=== PATIENT | female | born 1980 | race Caucasian/White ===

== ENCOUNTER 2016-03-10 18:19 | Emergency (ER) | payer BC | END 2016-03-10 21:23 | disposition home or self-care (01) | DX: B34.9 Viral infection, unspecified (principal) ==

== ENCOUNTER 2016-04-19 09:13 | Outpatient (CLI) | payer BC | END 2016-04-19 09:14 | disposition home or self-care (01) | DX: E03.9 Hypothyroidism, unspecified (principal); R73.09 Other abnormal glucose; E78.3 Hyperchylomicronemia; E34.9 Endocrine disorder, unspecified ==

== ENCOUNTER 2016-11-17 10:12 | Outpatient (CLI) | payer BC ==
--- NOTE | 2016-11-17 12:27 | XRAY Report ---
THREE-VIEW RIGHT ANKLE: 11/17/2016 CLINICAL INDICATION: Pain laterally, unable to bear weight. FINDINGS: AP, lateral, oblique views of the right ankle demonstrate a tiny avulsion fragment from th e lateral margin of the cuboid, best seen on the AP projection. No other fracture is seen. No effus ion is present. IMPRESSION: TINY AVULSION FRACTURE FROM THE LATERAL MARGIN OF THE CUBOID. JOB #: [id number] EXT JOB #:[id number]
--- NOTE | 2016-11-17 12:59 | XRAY Report ---
THREE-VIEW RIGHT FOOT: 11/17/2016 CLINICAL INDICATION: Pain. FINDINGS: AP, lateral, oblique views of the right foot demonstrate a tiny avulsion fracture from the lateral margin of the cuboid. There is no other fracture. The joint spaces are preserved. IMPRESSION: TINY AVULSION FRACTURE FROM THE LATERAL MARGIN OF THE CUBOID. JOB #: [id number] EXT JOB #:[id number]
== END 2016-11-17 10:13 | disposition home or self-care (01) ==
LOC: DI.S 10:12
PROVIDERS: ATTEND Naturopath
DX: S92.211A Displaced fracture of cuboid bone of right foot, initial encounter for closed fracture (principal)

== ENCOUNTER 2017-08-22 07:09 | Outpatient (CLI) | payer BC ==
[2017-08-22 13:11] LABS: BASOPHILS % (AUTO) 0.3 %; EOSINOPHILS # (AUTO) 0.1 10^3/uL (0.0-0.7); EOSINOPHILS % (AUTO) 2.8 %; LYMPHOCYTES # (AUTO) 1.7 10^3/uL (1.5-3.5); LYMPHOCYTES % (AUTO) 32.4 %; MEAN CORPUSCULAR HEMOGLOBIN 29.5 pg (27.0-31.0); MEAN CORPUSCULAR HGB CONC 33.5 g/dL (32.0-36.0); MONOCYTES # (AUTO) 0.4 10^3/uL (0.0-1.0); MONOCYTES % (AUTO) 7.7 %; NEUTROPHILS % (AUTO) 56.8 %; PLT - PLATELET COUNT 328 10^3/uL (130-450); RED BLOOD COUNT 4.75 10^6/uL (4.20-5.40); WHITE BLOOD COUNT 5.3 x10^3/uL (4.8-10.8)
[2017-08-22 13:26] LABS: ALBUMIN 3.7 g/dL (3.2-5.5); ALBUMIN/GLOBULIN RATIO 1.2 (1.0-2.2); ALKALINE PHOSPHATASE 96 IU/L (42-121); ALT ALANINE AMINOTRANSFERASE 17 IU/L (10-60); AST ASPARTATE AMINOTRANSFERASE 21 IU/L (10-42); BILIRUBIN,TOTAL 1.4 mg/dL (0.2-1.0); BUN - BLOOD UREA NITROGEN 8 mg/dL (6-20); CALCIUM 8.8 mg/dL (8.5-10.3); CARBON DIOXIDE - CO2 21 mmol/L (21-32); CHLORIDE 108 mmol/L (101-111); CHOL/HDL RATIO 4.9 (<4.4); CHOLESTEROL 195 mg/dL; CREATININE 0.7 mg/dL (0.4-1.0); GFR - MDRD 94 (>89); GLUCOSE 113 mg/dL (70-100); HDL CHOLESTEROL 40 mg/dL; LDL CHOLESTEROL,CALCULATED 88 mg/dL; LDL/HDL RATIO 2.2 (<4.4); SODIUM 135 mmol/L (135-145); TOTAL PROTEIN 6.9 g/dL (6.7-8.2); VLDL CHOLESTEROL 67 mg/dL
[2017-08-22 13:42] LABS: THYROID STIMULATING HORMONE 2.27 uIU/mL (0.34-5.60)
[2017-08-22 13:45] LABS: HB2 TOTAL 14.4 g/dL; HEMOGLOBIN A1C 0.61 g/dL
[2017-08-22 13:46] LABS: FREE T4 (FREE THYROXINE) 0.84 ng/dL (0.58-1.64)
[2017-08-22 13:48] LABS: TOTAL T3 0.95 ng/mL (0.87-1.78)
[2017-08-22 13:49] LABS: PROLACTIN 14.96 ng/mL
[2017-08-22 14:11] LABS: FOLLICLE STIMULATING HORMONE 7.87 mIU/mL
[2017-08-25 18:31] LABS: T3 REVERSE 13 ng/dL (8-25)
== END 2017-08-22 07:10 | disposition home or self-care (01) ==
LOC: LAB.F 07:09
PROVIDERS: ATTEND Obstetrics & Gynecology
DX: Z00.00 Encounter for general adult medical examination without abnormal findings (principal); R53.83 Other fatigue; E03.9 Hypothyroidism, unspecified; R73.09 Other abnormal glucose; E55.9 Vitamin D deficiency, unspecified
CPT/HCPCS: 36415; 80053; 80061; 81599; 82397; 82626; 82670; 82728; 83001; 83036; 83520; 83721; 84146; 84439; 84443; 84480; 84481; 84482; 85025; 86762; 86787

== ENCOUNTER 2018-12-24 10:12 | Outpatient (CLI) | payer BC ==
[2018-12-24 17:19] LABS: BASOPHILS % (AUTO) 0.4 %; EOSINOPHILS # (AUTO) 0.1 10^3/uL (0.0-0.7); EOSINOPHILS % (AUTO) 2.3 %; LYMPHOCYTES # (AUTO) 1.7 10^3/uL (1.5-3.5); LYMPHOCYTES % (AUTO) 34.4 %; MEAN CORPUSCULAR HEMOGLOBIN 28.7 pg (27.0-31.0); MEAN CORPUSCULAR HGB CONC 32.1 g/dL (32.0-36.0); MEAN CORPUSCULAR VOLUME 89.5 fL (81.0-99.0); MEAN PLATELET VOLUME 9.8 fL (7.9-10.8); MONOCYTES # (AUTO) 0.4 10^3/uL (0.0-1.0); MONOCYTES % (AUTO) 7.3 %; NEUTROPHILS # (AUTO) 2.7 10^3/uL (1.5-6.6); NEUTROPHILS % (AUTO) 55.4 %; PLT - PLATELET COUNT 345 10^3/uL (130-450); RED BLOOD COUNT 4.87 10^6/uL (4.20-5.40); RED CELL DISTRIBUTION WIDTH 12.5 % (12.0-15.0); WHITE BLOOD COUNT 4.8 x10^3/uL (4.8-10.8)
[2018-12-24 17:39] LABS: HB2 TOTAL 14.3 g/dL; HEMOGLOBIN A1C 0.54 g/dL; HEMOGLOBIN A1C % 5.6 % (4.6-6.2)
[2018-12-24 17:50] LABS: ALBUMIN 4.1 g/dL (3.2-5.5); ALBUMIN/GLOBULIN RATIO 1.4 (1.0-2.2); ALKALINE PHOSPHATASE 79 IU/L (42-121); ALT ALANINE AMINOTRANSFERASE 15 IU/L (10-60); AST ASPARTATE AMINOTRANSFERASE 18 IU/L (10-42); BILIRUBIN,TOTAL 0.7 mg/dL (0.2-1.0); BUN - BLOOD UREA NITROGEN 7 mg/dL (6-20); CARBON DIOXIDE - CO2 26 mmol/L (21-32); CHLORIDE 109 mmol/L (101-111); CHOLESTEROL 174 mg/dL; CREATININE 0.6 mg/dL (0.4-1.0); GFR - MDRD 111 (>89); GLUCOSE 114 mg/dL (70-100); HDL CHOLESTEROL 44 mg/dL; LDL CHOLESTEROL,CALCULATED 59 mg/dL; LDL/HDL RATIO 1.3 (<4.4); SODIUM 139 mmol/L (135-145); VLDL CHOLESTEROL 71 mg/dL
[2018-12-24 17:55] LABS: FREE T4 (FREE THYROXINE) 0.67 ng/dL (0.58-1.64); THYROID STIMULATING HORMONE 1.61 uIU/mL (0.34-5.60)
[2018-12-24 17:58] LABS: FERRITIN 12.7 ng/mL (11.0-306.8)
[2018-12-24 18:00] LABS: TOTAL T3 1.15 ng/mL (0.87-1.78)
[2018-12-28 13:36] LABS: T3 REVERSE 12 ng/dL (8-25)
== END 2018-12-24 10:13 | disposition home or self-care (01) ==
LOC: LAB.S 10:12
PROVIDERS: ATTEND Family Medicine
DX: E03.9 Hypothyroidism, unspecified (principal); R73.09 Other abnormal glucose; R53.83 Other fatigue; E78.1 Pure hyperglyceridemia; D64.9 Anemia, unspecified
CPT/HCPCS: 36415; 80053; 80061; 82626; 82728; 83036; 83721; 84439; 84443; 84480; 84481; 84482; 85025

== ENCOUNTER 2020-05-02 09:41 | Outpatient (CLI) | payer OTHER ==
[2020-05-02 15:37] LABS: BASOPHILS % (AUTO) 0.4 %; EOSINOPHILS # (AUTO) 0.1 10^3/uL (0.0-0.7); EOSINOPHILS % (AUTO) 1.4 %; HCT - HEMATOCRIT 42.2 % (37.0-47.0); LYMPHOCYTES # (AUTO) 1.5 10^3/uL (1.5-3.5); LYMPHOCYTES % (AUTO) 29.5 %; MEAN CORPUSCULAR HEMOGLOBIN 29.9 pg (27.0-31.0); MEAN CORPUSCULAR HGB CONC 33.2 g/dL (32.0-36.0); MEAN PLATELET VOLUME 9.8 fL (7.9-10.8); MONOCYTES # (AUTO) 0.4 10^3/uL (0.0-1.0); MONOCYTES % (AUTO) 7.9 %; NEUTROPHILS % (AUTO) 60.6 %; PLT - PLATELET COUNT 361 10^3/uL (130-450); RED BLOOD COUNT 4.69 10^6/uL (4.20-5.40); RED CELL DISTRIBUTION WIDTH 12.3 % (12.0-15.0); WHITE BLOOD COUNT 4.9 x10^3/uL (4.8-10.8)
[2020-05-02 15:41] LABS: ALBUMIN 4.5 g/dL (3.2-5.5); ALBUMIN/GLOBULIN RATIO 1.6 (1.0-2.2); ALKALINE PHOSPHATASE 73 IU/L (42-121); ALT ALANINE AMINOTRANSFERASE 17 IU/L (10-60); AST ASPARTATE AMINOTRANSFERASE 19 IU/L (10-42); BILIRUBIN,TOTAL 1.7 mg/dL (0.2-1.0); BUN - BLOOD UREA NITROGEN 10 mg/dL (6-20); CALCIUM 9.8 mg/dL (8.5-10.3); CARBON DIOXIDE - CO2 23 mmol/L (21-32); CHLORIDE 109 mmol/L (101-111); CHOL/HDL RATIO 4.3 (<4.4); CHOLESTEROL 202 mg/dL; CREATININE 0.6 mg/dL (0.4-1.0); GFR - MDRD 110 (>89); GLUCOSE 106 mg/dL (70-100); HDL CHOLESTEROL 47 mg/dL; LDL CHOLESTEROL,CALCULATED 114 mg/dL; LDL/HDL RATIO 2.4 (<4.4); POTASSIUM 3.9 mmol/L (3.5-5.0); SODIUM 143 mmol/L (135-145); TOTAL PROTEIN 7.3 g/dL (6.7-8.2); TRIGLYCERIDES 204 mg/dL; VLDL CHOLESTEROL 41 mg/dL
[2020-05-02 15:48] LABS: THYROID STIMULATING HORMONE 1.3 uIU/mL (0.34-5.60)
[2020-05-02 15:50] LABS: FREE T3 3.59 pg/mL (2.5-3.9); FREE T4 (FREE THYROXINE) 0.85 ng/dL (0.58-1.64)
[2020-05-02 15:54] LABS: FERRITIN 22.1 ng/mL (11.0-306.8)
[2020-05-02 18:35] LABS: ESTIMATED AVERAGE GLUCOSE 108 mg/dL (70-100); HEMOGLOBIN A1c% 5.4 % (4.27-6.07)
[2020-05-04 14:07] LABS: HOMOCYSTEINE 5.2 umol/L (<10.4)
[2020-05-04 16:49] LABS: BILIRUBIN,DIRECT 0.2 mg/dL (0.1-0.5); GAMMA GLUTAMYL TRANSPEPTIDASE 16 IU/L (8-38)
== END 2020-05-02 09:42 | disposition home or self-care (01) ==
LOC: LAB.S 09:41
PROVIDERS: ATTEND Family Medicine
DX: E78.5 Hyperlipidemia, unspecified (principal); R73.09 Other abnormal glucose; R53.83 Other fatigue; E78.1 Pure hyperglyceridemia; E03.9 Hypothyroidism, unspecified; E55.9 Vitamin D deficiency, unspecified; D64.9 Anemia, unspecified
CPT/HCPCS: 36415; 80053; 80061; 82248; 82306; 82626; 82728; 82977; 83036; 83090; 83721; 84439; 84443; 84480; 84481; 84482; 85025; 86141

== ENCOUNTER 2021-01-27 08:00 | Outpatient (CLI) | payer BC, OTHER | END 2021-01-27 23:59 | disposition home or self-care (01) | LOC: LAB.S 08:00 | PROVIDERS: ATTEND Physician Assistant Medical | DX: J34.89 Other specified disorders of nose and nasal sinuses (principal); R07.0 Pain in throat; Z20.822 Contact with and (suspected) exposure to COVID-19 | CPT/HCPCS: 87070; 87275; 87276 ==

== ENCOUNTER 2021-05-07 10:11 | Outpatient (CLI) | payer BC ==
--- NOTE | 2021-05-07 11:40 | XRAY Report ---
PROCEDURE: Hip w/Pelvis 2-3V RT INDICATIONS: XRAY TECHNIQUE: AP pelvis with lateral view(s) of the right hip(s). COMPARISON: None. FINDINGS: Bones: No fractures or dislocations. Pelvic ring appears intact. No suspicious bony lesions. Mild right hip joint space narrowing and periarticular osteophyte formation Soft tissues: The visualized bowel gas pattern is normal. No suspicious soft tissue calcifications. IMPRESSION: Osteoarthritis. No acute fracture. No osseous lesion. If symptoms and/or clinical suspic ion for pathology continue, further assessment with repeat plain films, or advanced imaging (e.g., CT , MRI, or bone scan) is recommended for further assessment. Reviewed by: Gerald Montana MD on 05/07/2021 11:38 AM PDT Approved by: Gerald Montana MD on 05/07/2021 11:38 AM PDT Station ID: [id number]
== END 2021-05-07 10:12 | disposition home or self-care (01) ==
LOC: DI.S 10:11
PROVIDERS: ATTEND Family Medicine
DX: M16.11 Unilateral primary osteoarthritis, right hip (principal)

== ENCOUNTER 2021-07-27 13:05 | Outpatient (CLI) | payer BC ==
--- NOTE | 2021-07-27 15:36 | Ultrasound Report ---
PROCEDURE: Pelvic w/Transvaginal INDICATIONS: ABNORMAL MENSES TECHNIQUE: Real-time scanning was performed of the pelvic organs, with image documentation. Additional endovagi nal scanning was necessary due to incomplete visualization of the adnexal and endometrial structures by transabdominal scanning. COMPARISON: None. FINDINGS: Uterus: Uterus is anteverted and normal in size at 8.9 x 3.8 x 4.2 cm. The myometrium is homogeneou s. The endometrium measures 7 mm in combined thickness. There is a 20 mm diameter intramural mid po sterior fibroid present. Ovaries: The right ovary measures 3.3 x 1.8 x 2.4 cm, with a calculated ovarian volume of 7.5 cc. T he left ovary measures 3.2 x 2.2 x 1.6 cm, with a calculated ovarian volume of 5.8 cc. The ovaries h ave a normal sonographic appearance. Less than 12 follicles can be seen in each ovary. No adnexal m asses are seen. Other: No pathologic free abdominal or pelvic fluid. IMPRESSION: 1. Uterine fibroid. 2. Otherwise negative examination. Reviewed by: Gerald Montana MD on 07/27/2021 3:34 PM PDT Approved by: Gerald Montana MD on 07/27/2021 3:34 PM PDT Station ID: [id number]
== END 2021-07-27 13:06 | disposition home or self-care (01) ==
LOC: DI 13:05
PROVIDERS: ATTEND Nurse Practitioner Obstetrics & Gynecology
DX: N92.6 Irregular menstruation, unspecified (principal); D25.1 Intramural leiomyoma of uterus

== ENCOUNTER 2021-10-28 14:02 | Outpatient (CLI) | payer BC ==
[2021-10-28 20:27] LABS: BASOPHILS % (AUTO) 0.4 %; EOSINOPHILS # (AUTO) 0.1 10^3/uL (0.0-0.7); EOSINOPHILS % (AUTO) 0.7 %; HGB - HEMOGLOBIN 11.7 g/dL (12.0-16.0); LYMPHOCYTES # (AUTO) 1.7 10^3/uL (1.5-3.5); LYMPHOCYTES % (AUTO) 23.4 %; MEAN CORPUSCULAR HEMOGLOBIN 25.6 pg (27.0-31.0); MEAN CORPUSCULAR HGB CONC 31.6 g/dL (32.0-36.0); MEAN PLATELET VOLUME 9.9 fL (7.9-10.8); MONOCYTES # (AUTO) 0.5 10^3/uL (0.0-1.0); MONOCYTES % (AUTO) 6.5 %; NEUTROPHILS # (AUTO) 4.9 10^3/uL (1.5-6.6); NEUTROPHILS % (AUTO) 68.9 %; PLT - PLATELET COUNT 336 10^3/uL (130-450); RED BLOOD COUNT 4.57 10^6/uL (4.20-5.40); RED CELL DISTRIBUTION WIDTH 14.6 % (12.0-15.0); WHITE BLOOD COUNT 7.1 x10^3/uL (4.8-10.8)
[2021-10-28 20:39] LABS: ALBUMIN 4.2 g/dL (3.2-5.5); ALBUMIN/GLOBULIN RATIO 1.4 (1.0-2.2); ALKALINE PHOSPHATASE 68 IU/L (42-121); ALT ALANINE AMINOTRANSFERASE 13 IU/L (10-60); AST ASPARTATE AMINOTRANSFERASE 18 IU/L (10-42); BILIRUBIN,DIRECT 0.1 mg/dL (0.1-0.5); BILIRUBIN,TOTAL 1.1 mg/dL (0.2-1.0); BUN - BLOOD UREA NITROGEN 9 mg/dL (6-20); CALCIUM 9.1 mg/dL (8.5-10.3); CARBON DIOXIDE - CO2 25 mmol/L (21-32); CHLORIDE 103 mmol/L (101-111); CHOL/HDL RATIO 4.1 (<4.4); CHOLESTEROL 212 mg/dL; CREATININE 0.6 mg/dL (0.4-1.0); CRP HIGH SENSITIVITY 0.6 mg/L; GAMMA GLUTAMYL TRANSPEPTIDASE 15 IU/L (8-38); GFR - MDRD 109 (>89); GLUCOSE 94 mg/dL (70-100); HDL CHOLESTEROL 52 mg/dL; LDL CHOLESTEROL,CALCULATED 98 mg/dL; LDL/HDL RATIO 1.9 (<4.4); POTASSIUM 3.6 mmol/L (3.5-5.0); SODIUM 136 mmol/L (135-145); TOTAL PROTEIN 7.3 g/dL (6.7-8.2); TRIGLYCERIDES 310 mg/dL; VLDL CHOLESTEROL 62 mg/dL
[2021-10-28 20:49] LABS: THYROID STIMULATING HORMONE 1.16 uIU/mL (0.34-5.60)
[2021-10-28 20:50] LABS: FREE T4 (FREE THYROXINE) 0.6 ng/dL (0.58-1.64)
[2021-10-28 20:51] LABS: FREE T3 3.29 pg/mL (2.5-3.9)
[2021-10-28 20:56] LABS: FERRITIN 6.2 ng/mL (11.0-306.8)
[2021-10-28 21:18] LABS: FOLLICLE STIMULATING HORMONE 4.91 mIU/mL
[2021-10-28 21:22] LABS: ESTIMATED AVERAGE GLUCOSE 108 mg/dL (70-100); HEMOGLOBIN A1c% 5.4 % (4.27-6.07)
[2021-10-30 04:08] LABS: HOMOCYST(E)INE 9.1 umol/L (0.0-14.5); VITAMIN D 25-HYDROXY 56.5 ng/mL (30.0-100.0)
[2021-10-30 05:10] LABS: PROGESTERONE 0.3 ng/mL (.)
== END 2021-10-28 14:03 | disposition home or self-care (01) ==
LOC: LAB.S 14:02
PROVIDERS: ATTEND Family Medicine
DX: E78.5 Hyperlipidemia, unspecified (principal); R73.09 Other abnormal glucose; E03.9 Hypothyroidism, unspecified; R53.83 Other fatigue; E78.1 Pure hyperglyceridemia; E55.9 Vitamin D deficiency, unspecified; D64.9 Anemia, unspecified; R79.89 Other specified abnormal findings of blood chemistry
CPT/HCPCS: 36415; 80053; 80061; 81599; 82248; 82306; 82626; 82670; 82728; 82977; 83001; 83036; 83088; 83090; 83721; 84144; 84439; 84443; 84480; 84481; 84482; 85025; 86141

== ENCOUNTER 2022-05-12 10:51 | Outpatient (CLI) | payer BC ==
[2022-05-12 11:12] LABS: BASOPHILS % (AUTO) 0.3 %; EOSINOPHILS # (AUTO) 0.1 10^3/uL (0.0-0.7); EOSINOPHILS % (AUTO) 1.7 %; HCT - HEMATOCRIT 41.9 % (37.0-47.0); HGB - HEMOGLOBIN 13.4 g/dL (12.0-16.0); LYMPHOCYTES # (AUTO) 1.7 10^3/uL (1.5-3.5); LYMPHOCYTES % (AUTO) 27.5 %; MEAN CORPUSCULAR HEMOGLOBIN 27.7 pg (27.0-31.0); MEAN CORPUSCULAR VOLUME 86.6 fL (81.0-99.0); MEAN PLATELET VOLUME 9.2 fL (7.9-10.8); MONOCYTES # (AUTO) 0.5 10^3/uL (0.0-1.0); MONOCYTES % (AUTO) 8.5 %; NEUTROPHILS # (AUTO) 3.7 10^3/uL (1.5-6.6); NEUTROPHILS % (AUTO) 61.8 %; PLT - PLATELET COUNT 344 10^3/uL (130-450); RED BLOOD COUNT 4.84 10^6/uL (4.20-5.40); RED CELL DISTRIBUTION WIDTH 13.3 % (12.0-15.0)
[2022-05-12 11:37] LABS: % IRON SATURATION 18 % (20-50); ALBUMIN 4.3 g/dL (3.2-5.5); ALBUMIN/GLOBULIN RATIO 1.4 (1.0-2.2); ALKALINE PHOSPHATASE 63 IU/L (42-121); ALT ALANINE AMINOTRANSFERASE 18 IU/L (10-60); AST ASPARTATE AMINOTRANSFERASE 18 IU/L (10-42); BILIRUBIN,TOTAL 1.2 mg/dL (0.2-1.0); BUN - BLOOD UREA NITROGEN 11 mg/dL (6-20); CALCIUM 9.3 mg/dL (8.5-10.3); CARBON DIOXIDE - CO2 26 mmol/L (21-32); CHLORIDE 105 mmol/L (101-111); CHOL/HDL RATIO 4.7 (<4.4); CHOLESTEROL 254 mg/dL; CREATININE 0.7 mg/dL (0.4-1.0); CRP HIGH SENSITIVITY 0.8 mg/L; GFR - MDRD 91 (>89); GLUCOSE 112 mg/dL (70-100); HDL CHOLESTEROL 54 mg/dL; IRON 89 ug/dL (28-170); LDL CHOLESTEROL,CALCULATED 153 mg/dL; LDL/HDL RATIO 2.8 (<4.4); SODIUM 138 mmol/L (135-145); TOTAL IRON BINDING CAPACITY 484 ug/dL (250-450); TOTAL PROTEIN 7.4 g/dL (6.7-8.2); TRANSFERRIN 346 mg/dL (192-382); TRIGLYCERIDES 236 mg/dL; VLDL CHOLESTEROL 47 mg/dL
[2022-05-12 11:49] LABS: THYROID STIMULATING HORMONE 1.18 uIU/mL (0.34-5.60)
[2022-05-12 11:51] LABS: FREE T3 3.81 pg/mL (2.5-3.9); FREE T4 (FREE THYROXINE) 0.82 ng/dL (0.58-1.64)
[2022-05-12 12:17] LABS: FOLLICLE STIMULATING HORMONE 5.28 mIU/mL
[2022-05-13 05:11] LABS: VITAMIN D 25-HYDROXY 65.6 ng/mL (30.0-100.0)
[2022-05-13 07:09] LABS: PROGESTERONE 0.5 ng/mL (.)
== END 2022-05-12 10:52 | disposition home or self-care (01) ==
LOC: LAB 10:51
PROVIDERS: ATTEND Family Medicine
DX: E78.1 Pure hyperglyceridemia (principal); E78.5 Hyperlipidemia, unspecified; E03.9 Hypothyroidism, unspecified; D64.9 Anemia, unspecified; E55.9 Vitamin D deficiency, unspecified; R53.83 Other fatigue; N97.9 Female infertility, unspecified
CPT/HCPCS: 36415; 80053; 80061; 81599; 82306; 82670; 82728; 83001; 83088; 83090; 83540; 83721; 84144; 84439; 84443; 84466; 84480; 84481; 84482; 85025; 86141

== ENCOUNTER 2022-05-17 07:25 | Outpatient (CLI) | payer BC ==
[2022-05-18 12:28] LABS: ESTIMATED AVERAGE GLUCOSE 111 mg/dL (70-100); HEMOGLOBIN A1c% 5.5 % (4.27-6.07)
== END 2022-05-17 14:40 | disposition home or self-care (01) ==
LOC: LAB.S 07:25
PROVIDERS: ATTEND Family Medicine
DX: R21 Rash and other nonspecific skin eruption (principal); M25.50 Pain in unspecified joint
CPT/HCPCS: 36415; 83036; 85651; 86140

== ENCOUNTER 2023-03-02 07:01 | Outpatient (CLI) | payer BC ==
[2023-03-02 14:46] LABS: BASOPHILS % (AUTO) 0.4 %; EOSINOPHILS # (AUTO) 0.1 10^3/uL (0.0-0.7); EOSINOPHILS % (AUTO) 1.9 %; HCT - HEMATOCRIT 41.9 % (37.0-47.0); HGB - HEMOGLOBIN 13.3 g/dL (12.0-16.0); LYMPHOCYTES # (AUTO) 1.4 10^3/uL (1.5-3.5); LYMPHOCYTES % (AUTO) 30.9 %; MEAN CORPUSCULAR HEMOGLOBIN 28.5 pg (27.0-31.0); MEAN CORPUSCULAR HGB CONC 31.7 g/dL (32.0-36.0); MEAN CORPUSCULAR VOLUME 89.7 fL (81.0-99.0); MEAN PLATELET VOLUME 9.6 fL (7.9-10.8); MONOCYTES # (AUTO) 0.4 10^3/uL (0.0-1.0); MONOCYTES % (AUTO) 8.6 %; NEUTROPHILS # (AUTO) 2.7 10^3/uL (1.5-6.6); NEUTROPHILS % (AUTO) 58.2 %; PLT - PLATELET COUNT 359 10^3/uL (130-450); RED BLOOD COUNT 4.67 10^6/uL (4.20-5.40); RED CELL DISTRIBUTION WIDTH 12.9 % (12.0-15.0); WHITE BLOOD COUNT 4.6 x10^3/uL (4.8-10.8)
[2023-03-02 15:46] LABS: THYROID STIMULATING HORMONE 4.24 uIU/mL (0.34-5.60)
[2023-03-02 15:52] LABS: FERRITIN 10.8 ng/mL (11.0-306.8)
[2023-03-02 15:56] LABS: % IRON SATURATION 14 % (20-50); ALBUMIN 4.2 g/dL (3.2-5.5); ALBUMIN/GLOBULIN RATIO 1.4 (1.0-2.2); ALKALINE PHOSPHATASE 76 IU/L (42-121); ALT ALANINE AMINOTRANSFERASE 10 IU/L (10-60); AST ASPARTATE AMINOTRANSFERASE 13 IU/L (10-42); BILIRUBIN,TOTAL 0.8 mg/dL (0.2-1.0); BUN - BLOOD UREA NITROGEN 12 mg/dL (6-20); CALCIUM 9.1 mg/dL (8.5-10.3); CARBON DIOXIDE - CO2 27 mmol/L (21-32); CHLORIDE 105 mmol/L (101-111); CHOL/HDL RATIO 3.8 (<4.4); CHOLESTEROL 184 mg/dL; CREATININE 0.7 mg/dL (0.6-1.3); CRP HIGH SENSITIVITY 0.99 mg/L; GFR - MDRD 91 (>89); GLUCOSE 116 mg/dL (74-104); HDL CHOLESTEROL 48 mg/dL; IRON 59 ug/dL (50-212); LDL CHOLESTEROL,CALCULATED 94 mg/dL; SODIUM 137 mmol/L (135-145); TOTAL IRON BINDING CAPACITY 407 ug/dL (250-450); TOTAL PROTEIN 7.1 g/dL (6.4-8.9); TRANSFERRIN 291 mg/dL (203-362); TRIGLYCERIDES 212 mg/dL (48-352); VLDL CHOLESTEROL 42 mg/dL
[2023-03-02 20:35] LABS: ESTIMATED AVERAGE GLUCOSE 105 mg/dL (70-100); HEMOGLOBIN A1c% 5.3 % (4.27-6.07)
[2023-03-03 07:10] LABS: PROGESTERONE 0.3 ng/mL (.)
[2023-03-03 14:09] LABS: ESTRADIOL 63.5 pg/mL (.)
[2023-03-09 02:09] LABS: REVERSE T3 SERUM 9.2 ng/dL (.)
== END 2023-03-02 07:02 | disposition home or self-care (01) ==
LOC: LAB.S 07:01
PROVIDERS: ATTEND Family Medicine
DX: E78.5 Hyperlipidemia, unspecified (principal); R21 Rash and other nonspecific skin eruption; E03.9 Hypothyroidism, unspecified; D64.9 Anemia, unspecified; E55.9 Vitamin D deficiency, unspecified; R53.83 Other fatigue; N97.9 Female infertility, unspecified; E78.1 Pure hyperglyceridemia
CPT/HCPCS: 36415; 80053; 80061; 81599; 82626; 82670; 82728; 83001; 83036; 83088; 83090; 83540; 83721; 84144; 84439; 84443; 84466; 84480; 84481; 84482; 85025; 86141

== ENCOUNTER 2023-09-01 13:33 | Outpatient (CLI) | payer BC ==
[2023-09-01 20:05] LABS: BASOPHILS % (AUTO) 0.3 %; EOSINOPHILS % (AUTO) 0.5 %; HCT - HEMATOCRIT 42.9 % (37.0-47.0); HGB - HEMOGLOBIN 13.8 g/dL (12.0-16.0); LYMPHOCYTES # (AUTO) 1.6 10^3/uL (1.5-3.5); LYMPHOCYTES % (AUTO) 20.3 %; MEAN CORPUSCULAR HEMOGLOBIN 28.4 pg (27.0-31.0); MEAN CORPUSCULAR HGB CONC 32.2 g/dL (32.0-36.0); MEAN CORPUSCULAR VOLUME 88.3 fL (81.0-99.0); MEAN PLATELET VOLUME 9.9 fL (7.9-10.8); MONOCYTES # (AUTO) 0.4 10^3/uL (0.0-1.0); MONOCYTES % (AUTO) 5.1 %; NEUTROPHILS # (AUTO) 5.8 10^3/uL (1.5-6.6); NEUTROPHILS % (AUTO) 73.5 %; PLT - PLATELET COUNT 295 10^3/uL (130-450); RED BLOOD COUNT 4.86 10^6/uL (4.20-5.40); WHITE BLOOD COUNT 7.9 x10^3/uL (4.8-10.8)
[2023-09-01 20:23] LABS: ESTIMATED AVERAGE GLUCOSE 105 mg/dL (70-100); HEMOGLOBIN A1c% 5.3 % (4.27-6.07)
[2023-09-01 20:28] LABS: % IRON SATURATION 35 % (20-50); ALBUMIN 4.7 g/dL (3.2-5.5); ALBUMIN/GLOBULIN RATIO 1.8 (1.0-2.2); ALKALINE PHOSPHATASE 70 IU/L (42-121); ALT ALANINE AMINOTRANSFERASE 9 IU/L (10-60); AST ASPARTATE AMINOTRANSFERASE 14 IU/L (10-42); BILIRUBIN,TOTAL 1.5 mg/dL (0.2-1.0); BUN - BLOOD UREA NITROGEN 8 mg/dL (6-20); CALCIUM 9.5 mg/dL (8.5-10.3); CARBON DIOXIDE - CO2 22 mmol/L (21-32); CHLORIDE 105 mmol/L (101-111); CHOL/HDL RATIO 3.3 (<4.4); CHOLESTEROL 183 mg/dL; CREATININE 0.6 mg/dL (0.6-1.3); CRP HIGH SENSITIVITY 0.38 mg/L; GFR - MDRD 109 (>89); GLUCOSE 93 mg/dL (74-104); HDL CHOLESTEROL 55 mg/dL; IRON 155 ug/dL (50-212); LDL CHOLESTEROL,CALCULATED 93 mg/dL; LDL/HDL RATIO 1.7 (<4.4); POTASSIUM 3.6 mmol/L (3.5-4.5); SODIUM 136 mmol/L (135-145); TOTAL IRON BINDING CAPACITY 447 ug/dL (250-450); TOTAL PROTEIN 7.3 g/dL (6.4-8.9); TRANSFERRIN 319 mg/dL (203-362); TRIGLYCERIDES 176 mg/dL; VLDL CHOLESTEROL 35 mg/dL
[2023-09-01 20:32] LABS: THYROID STIMULATING HORMONE 0.89 uIU/mL (0.34-5.60)
[2023-09-04 13:10] LABS: VITAMIN D 25-HYDROXY 69.2 ng/mL (30.0-100.0)
[2023-09-04 14:08] LABS: INSULIN 7.6 uIU/mL (2.6-24.9)
== END 2023-09-01 13:34 | disposition home or self-care (01) ==
LOC: LAB.S 13:33
PROVIDERS: ATTEND Family Medicine
DX: E78.5 Hyperlipidemia, unspecified (principal); E03.9 Hypothyroidism, unspecified; R73.09 Other abnormal glucose; R53.83 Other fatigue; D64.9 Anemia, unspecified; J45.909 Unspecified asthma, uncomplicated; T78.49XA Other allergy, initial encounter
CPT/HCPCS: 36415; 80053; 80061; 81599; 82306; 82626; 82728; 83036; 83090; 83525; 83540; 83721; 84439; 84443; 84466; 84480; 84481; 84482; 85025; 86141